=== PATIENT | male | born 1980 | race Caucasian/White ===

== ENCOUNTER 2023-09-02 13:31 | Outpatient (OUT) | payer SELFPAY ==
--- NOTE | 2023-09-02 | XR_ITS ---
The [address] [address] Patient Name: STEVEN PIÑA MRN: [id number] date: 1980 Sex: M Assigned Patient Location: Current Patient Location: Accession/Order Number: [id number] Exam Date: 09/02/2023 13:32 Report Date: 09/03/2023 09:45 At the request of: GENI CARRANZA Procedure: XR ankle LT min 3V PROCEDURE: XR ankle LT min 3V HISTORY: LEFT ANKLE PAIN COMPARISON: None. FINDINGS: BONES:No fracture, acute abnormality, or significant arthropathy. SOFT TISSUES:Mild swelling laterally. EFFUSION:None visible. OTHER: Negative. XR/XR ankle LT min 3V IMPRESSION: 1. Mild lateral swelling; possible soft tissue injury. 2. No acute bone abnormality. Electronically authenticated by: ROBYN CARMONA Date: 09/03/2023 09:45
== END 2023-09-02 13:32 | disposition home or self-care (01) ==
PROVIDERS: Visit Provider Podiatrist Foot & Ankle Surgery
DX: M25.572 Pain in left ankle and joints of left foot (principal)
CPT/HCPCS: 73610